=== PATIENT | male | born 1975 | race Caucasian/White ===

== ENCOUNTER 2017-03-24 23:22 | Inpatient (IN) | payer OTHER ==
[~2017-03-24] VITALS: Ht 172.7 cm; Wt 84.1 kg
--- NOTE | 2017-03-24 23:40 | NUR ---
PATIENT BROUGHT IN BY SISITER FOR C/O ETOH, PT IS ALERT,ABLE TO ANSWER QUESTIONS, ABLE TO MAKE NEEDS KNOWN, NO RESP DISTRESS NOTED OR REPORTED UPON ASSESSMENT... MD AT BEDSIDE...
[2017-03-25] MEDS ORDERED: ONDANSETRON IV *ER 4 MG/2 ML VIAL IV ONE
[2017-03-25] MEDS ORDERED: LORAZEPAM 2 MG/1 ML VIAL IV ONE
[2017-03-25] MEDS ORDERED: ONDANSETRON 4 MG/2 ML VIAL ONE (00:07)
[2017-03-25] MEDS ORDERED: LORAZEPAM 2 MG/1 ML VIAL ONE (00:07)
[2017-03-25 00:13] LABS: BASOPHILS # (AUTO) 0.1 K/uL (0.0-8.0); BASOPHILS % (AUTO) 1.2 % (0.0-2.0); EOSINOPHILS # (AUTO) 0.2 K/uL (0.0-0.7); EOSINOPHILS % (AUTO) 3.2 % (0.0-7.0); HEMATOCRIT 51.8 % (40-50); HEMOGLOBIN 17.7 G/DL (14.0-18.0); LYMPHOCYTES # (AUTO) 2.9 K/UL (0.8-4.8); LYMPHOCYTES % (AUTO) 42.9 % (20.5-51.5); MEAN CORPUSCULAR HEMOGLOBIN 30.9 UUG (27.0-31.0); MEAN CORPUSCULAR HGB CONC 34 g/dL (32.0-37.0); MEAN CORPUSCULAR VOLUME 90.2 FL (82.0-92.0); MONOCYTES # (AUTO) 0.8 K/UL (0.1-1.30); MONOCYTES % (AUTO) 11.2 % (0.0-11.0); NEUTROPHILS # (AUTO) 2.8 K/UL (1.8-8.9); NEUTROPHILS % (AUTO) 41.5 % (38.5-71.5); PLATELET COUNT (AUTO) 187 K/UL (150-450); RED BLOOD CELL COUNT(AUTO) 5.74 MIL/UL (4.7-6.1); WHITE BLOOD COUNT (AUTO) 6.8 K/UL (4.0-11.2)
[2017-03-25 00:15] LABS: CARBON DIOXIDE 27 mmol/L (21-32); CHLORIDE 101 mmol/L (98-107); CREATININE 0.9 mg/dL (0.6-1.3); GLUCOSE 120 mg/dL (74-106); POTASSIUM 3.8 mmol/L (3.5-5.1); UREA NITROGEN, BLOOD 8 mg/dL (7-18)
[2017-03-25] MEDS ORDERED: IV NORMAL SALINE 1000 ML BAG IV ONE ×2 (00:30)
[2017-03-25 00:31] LABS: *BILIRUBIN,URIN NEGATIVE (NEGATIVE); *BLOOD, URINE 2+ (NEGATIVE); *CLARITY,URINE CLEAR (CLEAR); *COLOR,URINE YELLOW (YELLOW); *KETONES,URINE NEGATIVE (NEGATIVE); *PROTEIN,URINE 2+ (NEGATIVE); *UROBILINOGEN,URINE 0.2 E.U./dl (NORMAL); LEUKOCYTE ESTERASE ,URINE NEGATIVE (NEGATIVE); NITRITE, URINE NEGATIVE (NEGATIVE); PH,URINE 7.5 (5.0-8.0); UGLUCOSE NEGATIVE (NEGATIVE)
[2017-03-25 00:36] LABS: *AMPHETAMINE, URINE NEGATIVE (NEGATIVE); *BARBITURATE, URINE NEGATIVE (NEGATIVE); *CANNABINOID, URINE NEGATIVE (NEGATIVE); *COCCAINE, URINE NEGATIVE (NEGATIVE); *OPIATE, URINE NEGATIVE (NEGATIVE); *PHENCYCLIDINE SCREEN,URINE NEGATIVE (NEGATIVE)
[2017-03-25 00:36] LABS: ALANINE AMINOTRANSFERASE 104 U/L (16-63); ALKALINE PHOSPHATASE 63 U/L (50-136); ASPARTATE AMINOTRANSFERASE 209 U/L (15-37); BILIRUBIN,DIRECT 0.1 mg/dL (0.0-0.2); BILIRUBIN,TOTAL 0.7 mg/dL (0.2-1.0); TOTAL PROTEIN, SERUM 8.2 g/dL (6.4-8.2)
[2017-03-25 00:37] LABS: ACETAMINOPHEN < 2.0 ug/mL (10-30)
[2017-03-25 00:39] LABS: ETHANOL 428 MG/DL (0-0)
[2017-03-25 00:43] LABS: BACTERIA,URINE MODERATE /HPF (NONE SEEN); RBC,URINE 20-50 /HPF (0-3); SQUAMOUS EPITHELIAL CELL,UR FEW /HPF (NONE SEEN); URINE AMORPHOUS URATE FEW /HPF
[2017-03-25] MEDS ORDERED: LACTULOSE 20 G/30 ML LIQUID UDC PO ONE (01:00)
[2017-03-25] MEDS ORDERED: AMPH15TA2 PO (01:16)
[2017-03-25] MEDS ORDERED: GABA-534 PO (01:16)
[2017-03-25] MEDS ORDERED: GABA600T2 PO (01:16)
[2017-03-25] MEDS ORDERED: FAMO-132 PO (01:16)
[2017-03-25] MEDS ORDERED: ATEN25TA PO (01:16)
[2017-03-25] MEDS ORDERED: LACTULOSE 20 G/30 ML LIQUID UDC ONE (01:50)
[2017-03-25] MEDS ORDERED: IV D5 1/2 NS 1000 ML 1,000 ML IV PRN (02:17)
--- NOTE | 2017-03-25 02:20 | NUR ---
ADMIT NEW PATIENT TO ROOM 217, PATIENT AWAKE, ALERT,IN NO ACUTE DISTRESS,ABLE TO ANSWER SOME QUESTIONS,NSR ON TELE MONITOR,KEEP NPO ORDER,PATIENT WAS EXPLAINED AND VERBALIZED UNDERSTANDING, FALL PRECAUTIONS, BEDSIDE COMMODE PROVIDED, PATIENT RECEIVED LACTULOSE FROM ER.
[2017-03-25] MEDS ORDERED: ONDANSETRON 4 MG/2 ML VIAL IV PRN (02:30)
[2017-03-25] MEDS ORDERED: ACETAMINOPHEN 325 MG TABLET PO PRN (02:30)
[2017-03-25] MEDS ORDERED: Z GUARD REMEDY PASTE 57 GM TUBE TOP PRN (02:30)
[2017-03-25] MEDS ORDERED: HYDROCODONE/APAP 5-325MG TABLET PO PRN (02:30)
[2017-03-25] MEDS ORDERED: ZOLPIDEM 5 MG TABLET PO PRN (02:30)
[2017-03-25] MEDS ORDERED: LACTULOSE 20 G/30 ML LIQUID UDC PO PRN (02:30)
[2017-03-25] MEDS ORDERED: MAGNESIUM HYDROXIDE 30 ML LIQUID UDC PO PRN (02:30)
[2017-03-25] MEDS ORDERED: MVI ADULT 10 ML VIAL=1 AMP 10 ML, THIAMINE HCL INJ 100 MG, FOLIC ACID 1 MG, MAGNESIUM S... IV SCH ×5 (02:30)
[2017-03-25 02:44] VITALS: BP 119/79
--- NOTE | 2017-03-25 03:04 | NUR ---
Pt. admitted to TELE , under care of Dr. BEVERLY SOLO, Belongs List completed, pt is awake, alert, no resp distress noted or reported upon transfer assessment...
[2017-03-25 03:06] LABS: AMYLASE 51 U/L (25-115); LIPASE 220 U/L (73-393)
[2017-03-25 04:00] VITALS: BP 121/85
[2017-03-25] MEDS: PANTOPRAZOLE SODIUM 40 MG TABLET.DR PO SCH (07:00)
[2017-03-25] MEDS: LACTULOSE 20 G/30 ML LIQUID UDC PO SCH ×2 (10:37→11:15)
[2017-03-25] MEDS ORDERED: MVI ADULT IV PRN (11:00)
[2017-03-25] MEDS ORDERED: D5 IV PRN (11:00)
[2017-03-25] MEDS ORDERED: THIAMINE HCL INJ 100 MG in IV DEXTROSE 5% 50 ML IV SCH ×2 (11:00→12:00)
[2017-03-25] MEDS ORDERED: 1/2 NS IV PRN (11:00)
[2017-03-25] MEDS ORDERED: FOLIC ACID 1 MG in IV DEXTROSE 5% 50 ML IV SCH (11:00)
[2017-03-25 11:30] VITALS: BP 114/79
--- NOTE | 2017-03-25 11:41 | NUR ---
PT IS SHACKING, PT IS ASKING FOR ATIVAN. PER DR. LUCAS GIVE ATIVAN 2MG NOW, THEN 2MG Q4H PRN
[2017-03-25] MEDS: LORAZEPAM 2 MG/1 ML VIAL IV PRN ×3 (12:05→21:34)
[2017-03-25] MEDS ORDERED: MAGNESIUM SULFATE/D5W 100 ML IV SCH (13:00)
[2017-03-25] MEDS: MAGNESIUM SULFATE/D5W 100 ML IV SCH (13:21)
--- NOTE | 2017-03-25 14:25 | NUR ---
PT STILL FEELS NAUSEA, OK TO CHANGE ZOFRAN TO Q4H 4MG PRN PER DR. LUCAS
[2017-03-25] MEDS: ONDANSETRON 4 MG/2 ML VIAL IV PRN ×2 (15:01→19:57)
--- NOTE | 2017-03-25 15:14 | NUR ---
OK TO CHANGE FROM NPO TO FULL LIQUIDS PER DR LUCAS
[2017-03-25 15:43] VITALS: BP 129/79
--- NOTE | 2017-03-25 19:28 | NUR ---
PT IS LAYING IN BED COMFORTABLY. NO S/S OF RESPIRATORY DISTRESS NOTED. NO PAIN NOTED. ALL SAFETY NEEDS ARE MET. IV INTACT/PATENT.
[2017-03-25 20:00] VITALS: BP 142/97
--- NOTE | 2017-03-25 20:00 | NUR ---
PATIENT STILL FEELING WEAK AND NAUSEA,ZOFRAN 4 MG IV ADMIN FOR NAUSEA,SLIGHTLY RESTLESS NOTED.
--- NOTE | 2017-03-25 21:35 | NUR ---
PATIENT SHAKING,ATIVAN 2 MG IV ADMIN,NSR ON MONITOR,CONTINUE CLOSELY MONITOR.
[2017-03-26] VITALS: BP 130/87
--- NOTE | 2017-03-26 00:05 | NUR ---
PATIENT SLEPT INTERMITTENTLY,NO ACUTE DISTRESS NOTED.
[2017-03-26] MEDS: ONDANSETRON 4 MG/2 ML VIAL IV PRN ×3 (02:23→12:02)
[2017-03-26] MEDS: LORAZEPAM 2 MG/1 ML VIAL IV PRN ×3 (02:24→12:02)
[2017-03-26 04:00] VITALS: BP 126/75
[2017-03-26] MEDS: PANTOPRAZOLE SODIUM 40 MG TABLET.DR PO SCH (06:13)
[2017-03-26 06:57] LABS: BASOPHILS % (AUTO) 0.9 % (0.0-2.0); EOSINOPHILS % (AUTO) 7.1 % (0.0-7.0); MEAN CORPUSCULAR HEMOGLOBIN 30.8 UUG (27.0-31.0); MEAN CORPUSCULAR HGB CONC 34 g/dL (32.0-37.0); MEAN CORPUSCULAR VOLUME 91.3 FL (82.0-92.0); MONOCYTES % (AUTO) 7.1 % (0.0-11.0); NEUTROPHILS # (AUTO) 4.8 K/UL (1.8-8.9); NEUTROPHILS % (AUTO) 66.9 % (38.5-71.5); WHITE BLOOD COUNT (AUTO) 7.2 K/UL (4.0-11.2)
[2017-03-26 06:58] LABS: BASOPHILS # (AUTO) 0.1 K/uL (0.0-8.0); EOSINOPHILS # (AUTO) 0.5 K/uL (0.0-0.7); LYMPHOCYTES # (AUTO) 1.3 K/UL (0.8-4.8); MONOCYTES # (AUTO) 0.5 K/UL (0.1-1.30)
[2017-03-26 07:09] LABS: BILIRUBIN,TOTAL 1.5 mg/dL (0.2-1.0); MAGNESIUM 1.8 mg/dL (1.8-2.4); PHOSPHOROUS 2.8 mg/dL (2.5-4.9); POTASSIUM 3.2 mmol/L (3.5-5.1); TOTAL PROTEIN, SERUM 7.3 g/dL (6.4-8.2)
[2017-03-26 07:13] LABS: THYROID STIMULATING HORMONE 3.699 mIU/mL (0.358-3.740)
[2017-03-26 07:14] LABS: HEMATOCRIT 45.1 % (40-50); HEMOGLOBIN 15.2 G/DL (14.0-18.0); RED BLOOD CELL COUNT(AUTO) 4.95 MIL/UL (4.7-6.1)
[2017-03-26 07:15] LABS: PLATELET COUNT (AUTO) 130 K/UL (150-450)
--- NOTE | 2017-03-26 07:40 | NUR ---
famotidine q12h po [address] huang
[2017-03-26] MEDS: LACTULOSE 20 G/30 ML LIQUID UDC PO SCH (08:03)
[2017-03-26] MEDS ORDERED: MAG HYDROX/AL HYDROX/SIMETH 30 ML LIQUID UDC PO PRN (08:15)
[2017-03-26] MEDS ORDERED: FAMOTIDINE 20 MG TABLET PO SCH (09:00)
[2017-03-26] MEDS ORDERED: THIAMINE HCL 100 MG TABLET PO SCH (09:24)
[2017-03-26] MEDS ORDERED: MULTIVIT, IRON, MIN NO. 8, FA TABLET PO SCH (09:24)
[2017-03-26] MEDS ORDERED: FOLIC ACID 1 MG TABLET PO SCH (09:24)
[2017-03-26 11:15] VITALS: BP 131/85
[2017-03-26] MEDS ORDERED: CHLO25CA22 PO (11:23)
[2017-03-26] MEDS ORDERED: LORA1TAB PO (11:23)
[2017-03-26] MEDS ORDERED: POTASSIUM CHLORIDE 20 MEQ TAB.PRT.SR PO ONE (12:30)
[2017-03-26] MEDS: MAGNESIUM SULFATE/D5W 100 ML IV SCH (13:10)
--- NOTE | 2017-03-26 13:53 | NUR ---
discharge note: PT IS READY TO BE D/C. NO PAIN/ANXIETY NOTED. NO NAUSEA NOTED. NO S/S OF RESPIRATORY DISTRESS NOTED. PT IS WHEELCHAIRED AND LEFT VIA PRIVATE CAR WITH HIS SISTER. ROMULO SMITH TALKED TO THE PT. IV/WRISTBAND REMOVED. PT REFUSED EDUCATION WITH PHARMACIST, STATES "I KNOW THESE MEDICATIONS". PRESCRIPTION GIVEN TO THE PT. NO S/S BLEEDING NOTED.
== END 2017-03-26 14:06 | disposition home or self-care (01) | DRG 279 ==
LOC: ER 23:25 → TELE 03-25 02:00 → MED 03-26 13:42
PROVIDERS: ADMIT Internal Medicine; ATTEND Family Medicine
DX: K72.90 Hepatic failure, unspecified without coma (principal); I21.4 Non-ST elevation (NSTEMI) myocardial infarction; G92 Toxic encephalopathy; K85.90 Acute pancreatitis without necrosis or infection, unspecified; E72.20 Disorder of urea cycle metabolism, unspecified; K86.0 Alcohol-induced chronic pancreatitis; M62.82 Rhabdomyolysis; F10.239 Alcohol dependence with withdrawal, unspecified; Y90.8 Blood alcohol level of 240 mg/100 ml or more; K70.10 Alcoholic hepatitis without ascites; Z82.49 Family history of ischemic heart disease and other diseases of the circulatory system; F41.0 Panic disorder [episodic paroxysmal anxiety]; F32.9 Major depressive disorder, single episode, unspecified; Z83.3 Family history of diabetes mellitus; I10 Essential (primary) hypertension; Z87.891 Personal history of nicotine dependence; F90.9 Attention-deficit hyperactivity disorder, unspecified type
CPT/HCPCS: 36415; 70030-TC; 71010; 76700; 80307; 83690; 83735; 84100; 84443; 85025; 85730; 87086; 93005; 93307; A4663; G0480; G0480-TC; J2060; J2405; J3411; J3475; J3490; J7030; J7060

== ENCOUNTER 2017-08-03 13:19 | Inpatient (IN) | payer OTHER ==
[~2017-08-03] VITALS: Ht 172.7 cm; Wt 75.7 kg
[~2017-08-03 13:19] MED LIST: AMPH15TA2 PO; ATEN25TA PO; CHLO25CA22 PO; FAMO-132 PO; GABA-534 PO; GABA600T2 PO; LORA1TAB PO
[2017-08-03] MEDS ORDERED: IV NORMAL SALINE 1000 ML BAG IV ONE ×2 (13:45→14:45)
[2017-08-03] MEDS ORDERED: LORAZEPAM 2 MG/1 ML VIAL IV ONE (13:45)
[2017-08-03 13:56] LABS: BASOPHILS # (AUTO) 0.1 K/uL (0.0-8.0); BASOPHILS % (AUTO) 1.6 % (0.0-2.0); EOSINOPHILS # (AUTO) 0.3 K/uL (0.0-0.7); EOSINOPHILS % (AUTO) 3.7 % (0.0-7.0); HEMATOCRIT 50.7 % (40-50); HEMOGLOBIN 16.6 G/DL (14.0-18.0); LYMPHOCYTES % (AUTO) 42.6 % (20.5-51.5); MEAN CORPUSCULAR HEMOGLOBIN 28.5 UUG (27.0-31.0); MEAN CORPUSCULAR HGB CONC 33 g/dL (32.0-37.0); MEAN CORPUSCULAR VOLUME 87.2 FL (82.0-92.0); MONOCYTES # (AUTO) 0.5 K/UL (0.1-1.30); MONOCYTES % (AUTO) 7.4 % (0.0-11.0); NEUTROPHILS # (AUTO) 3.2 K/UL (1.8-8.9); NEUTROPHILS % (AUTO) 44.7 % (38.5-71.5); PLATELET COUNT (AUTO) 309 K/UL (150-450); RED BLOOD CELL COUNT(AUTO) 5.82 MIL/UL (4.7-6.1); WHITE BLOOD COUNT (AUTO) 7.1 K/UL (4.0-11.2)
[2017-08-03] MEDS ORDERED: LORAZEPAM 2 MG/1 ML VIAL ONE (14:07)
[2017-08-03 14:10] LABS: CARBON DIOXIDE 27 mmol/L (21-32); CHLORIDE 105 mmol/L (98-107); CREATININE 0.8 mg/dL (0.6-1.3); GLUCOSE 117 mg/dL (74-106); POTASSIUM 3.9 mmol/L (3.5-5.1); UREA NITROGEN, BLOOD 7 mg/dL (7-18)
[2017-08-03 14:15] LABS: ALANINE AMINOTRANSFERASE 58 U/L (16-63); ALKALINE PHOSPHATASE 30 U/L (50-136); ASPARTATE AMINOTRANSFERASE 42 U/L (15-37); BILIRUBIN,DIRECT 0.1 mg/dL (0.0-0.2); BILIRUBIN,TOTAL 0.8 mg/dL (0.2-1.0); TOTAL PROTEIN, SERUM 7.5 g/dL (6.4-8.2)
[2017-08-03 14:16] LABS: ACETAMINOPHEN < 2.0 ug/mL (10-30)
[2017-08-03 14:45] LABS: ETHANOL 302 MG/DL (0-0)
[2017-08-03 15:44] LABS: *BILIRUBIN,URIN NEGATIVE (NEGATIVE); *BLOOD, URINE Trace-intact (NEGATIVE); *CLARITY,URINE CLEAR (CLEAR); *COLOR,URINE YELLOW (YELLOW); *KETONES,URINE NEGATIVE (NEGATIVE); *PROTEIN,URINE NEGATIVE (NEGATIVE); *UROBILINOGEN,URINE 0.2 E.U./dl (NORMAL); LEUKOCYTE ESTERASE ,URINE NEGATIVE (NEGATIVE); NITRITE, URINE NEGATIVE (NEGATIVE); UGLUCOSE NEGATIVE (NEGATIVE)
[2017-08-03 15:52] LABS: BACTERIA,URINE NONE SEEN /HPF (NONE SEEN); SQUAMOUS EPITHELIAL CELL,UR FEW /HPF (NONE SEEN); WBC,URINE 0-3 /HPF (0-3)
[2017-08-03 16:11] LABS: *AMPHETAMINE, URINE NEGATIVE (NEGATIVE); *BARBITURATE, URINE NEGATIVE (NEGATIVE); *CANNABINOID, URINE NEGATIVE (NEGATIVE); *COCCAINE, URINE NEGATIVE (NEGATIVE); *OPIATE, URINE NEGATIVE (NEGATIVE); *PHENCYCLIDINE SCREEN,URINE NEGATIVE (NEGATIVE)
[2017-08-03 16:34] VITALS: BP 113/75
[2017-08-03] MEDS ORDERED: ACETAMINOPHEN 325 MG TABLET PO PRN (20:00)
[2017-08-03] MEDS ORDERED: MAG HYDROX/AL HYDROX/SIMETH 30 ML LIQUID UDC PO PRN (20:00)
[2017-08-03] MEDS ORDERED: HYDROMORPHONE 1 MG/1 ML DISP.SYRIN IV PRN (20:15)
[2017-08-03] MEDS: ONDANSETRON 4 MG/2 ML VIAL IV PRN (20:32)
[2017-08-03] MEDS: LORAZEPAM 2 MG/1 ML VIAL IV PRN (20:33)
[2017-08-03 20:37] VITALS: BP 113/62
[2017-08-03] MEDS ORDERED: Medication Not On Formulary EA (Gabapentin 600 MG) PO SCH (21:00)
[2017-08-03] MEDS: LACTULOSE 20 G/30 ML LIQUID UDC PO SCH (21:00)
[2017-08-03] MEDS: GABAPENTIN 300 MG CAPSULE PO SCH (22:13)
[2017-08-03] MEDS: HYDROMORPHONE 2 MG/1 ML DISP.SYRIN IV PRN (22:20)
[2017-08-03] MEDS ORDERED: IV 1/2NS 1000 ML 1,000 ML IV SCH (23:30)
[2017-08-04] VITALS: BP 110/62
[2017-08-04] MEDS: LORAZEPAM 2 MG/1 ML VIAL IV PRN ×4 (03:02→23:35)
[2017-08-04 04:00] VITALS: BP 115/72
[2017-08-04] MEDS: PANTOPRAZOLE SODIUM 40 MG TABLET.DR PO SCH (06:28)
[2017-08-04 06:50] LABS: BASOPHILS # (AUTO) 0.1 K/uL (0.0-8.0); BASOPHILS % (AUTO) 1.4 % (0.0-2.0); EOSINOPHILS # (AUTO) 0.4 K/uL (0.0-0.7); EOSINOPHILS % (AUTO) 4.8 % (0.0-7.0); HEMATOCRIT 44.9 % (40-50); HEMOGLOBIN 14.6 G/DL (14.0-18.0); LYMPHOCYTES % (AUTO) 23.1 % (20.5-51.5); MEAN CORPUSCULAR HEMOGLOBIN 28.6 UUG (27.0-31.0); MEAN CORPUSCULAR HGB CONC 33 g/dL (32.0-37.0); MEAN CORPUSCULAR VOLUME 88.1 FL (82.0-92.0); MONOCYTES # (AUTO) 0.8 K/UL (0.1-1.30); MONOCYTES % (AUTO) 8.8 % (0.0-11.0); NEUTROPHILS # (AUTO) 5.3 K/UL (1.8-8.9); NEUTROPHILS % (AUTO) 61.9 % (38.5-71.5); PLATELET COUNT (AUTO) 222 K/UL (150-450); WHITE BLOOD COUNT (AUTO) 8.6 K/UL (4.0-11.2)
[2017-08-04] MEDS ORDERED: IV 1/2NS 1000 ML 1,000 ML IV PRN (06:58)
[2017-08-04 07:14] LABS: BILIRUBIN,TOTAL 0.4 mg/dL (0.2-1.0); PHOSPHOROUS 4.1 mg/dL (2.5-4.9); POTASSIUM 3.7 mmol/L (3.5-5.1); TOTAL PROTEIN, SERUM 6.5 g/dL (6.4-8.2)
[2017-08-04 07:33] LABS: MAGNESIUM 1.2 mg/dL (1.8-2.4)
[2017-08-04] MEDS: ONDANSETRON 4 MG/2 ML VIAL IV PRN ×3 (08:23→22:05)
[2017-08-04] MEDS: HYDROMORPHONE 2 MG/1 ML DISP.SYRIN IV PRN (08:24)
[2017-08-04] MEDS: FAMOTIDINE 20 MG TABLET PO SCH ×2 (08:28→17:34)
[2017-08-04] MEDS: THIAMINE HCL 100 MG TABLET PO SCH (08:28)
[2017-08-04] MEDS: LACTULOSE 20 G/30 ML LIQUID UDC PO SCH ×3 (08:28→17:35)
[2017-08-04] MEDS: MULTIVITAMINS,THERAPEUTIC TABLET PO SCH (08:29)
[2017-08-04] MEDS: ATENOLOL 25 MG TABLET PO SCH ×2 (08:29→17:34)
[2017-08-04] MEDS: FOLIC ACID 1 MG TABLET PO SCH (08:29)
[2017-08-04] MEDS: GABAPENTIN 300 MG CAPSULE PO SCH ×2 (09:09→20:22)
[2017-08-04 11:39] VITALS: BP 138/75
[2017-08-04] MEDS: MAGNESIUM SULFATE/D5W 100 ML IV SCH ×4 (12:26→16:27)
[2017-08-04 15:43] VITALS: BP 134/86
[2017-08-04 20:00] VITALS: BP 102/63
[2017-08-04] MEDS: HYDROCODONE/APAP 5-325MG TABLET PO PRN (20:22)
[2017-08-05] MEDS: HYDROCODONE/APAP 5-325MG TABLET PO PRN (02:02)
[2017-08-05] MEDS: PANTOPRAZOLE SODIUM 40 MG TABLET.DR PO SCH (06:21)
[2017-08-05 06:48] LABS: CREATININE 0.9 mg/dL (0.6-1.3); POTASSIUM 4.2 mmol/L (3.5-5.1)
[2017-08-05 07:10] VITALS: BP 135/91
[2017-08-05 07:25] LABS: BASOPHILS # (AUTO) 0.1 K/uL (0.0-8.0); EOSINOPHILS # (AUTO) 0.5 K/uL (0.0-0.7); HEMOGLOBIN 15.1 g/dL (12.5-16.3); MONOCYTES # (AUTO) 0.5 K/uL (2.0-10.0); NEUTROPHILS # (AUTO) 3.3 K/uL (1.8-8.9); NEUTROPHILS % (AUTO) 54.6 % (38.5-71.5)
[2017-08-05 07:42] LABS: BASOPHILS % (AUTO) 2.1 % (0.0-2.0); EOSINOPHILS % (AUTO) 8.7 % (0.0-7.0); HEMATOCRIT 44.9 % (36.7-47.1); LYMPHOCYTES # (AUTO) 1.6 K/uL (20.0-40.0); LYMPHOCYTES % (AUTO) 26.2 % (20.5-51.5); MEAN CORPUSCULAR HEMOGLOBIN 29.9 uug (23.8-33.4); MEAN CORPUSCULAR HGB CONC 34 g/dL (32.5-36.3); MEAN CORPUSCULAR VOLUME 88.7 fL (73.0-96.2); MONOCYTES % (AUTO) 8.4 % (0.0-11.0); RED BLOOD CELL COUNT(AUTO) 5.06 MIL/uL (4.06-5.63)
[2017-08-05 07:45] LABS: PLATELET COUNT (AUTO) 162 K/uL (152-348); WHITE BLOOD COUNT (AUTO) 6.1 K/uL (3.6-10.2)
[2017-08-05] MEDS: GABAPENTIN 300 MG CAPSULE PO SCH (08:35)
[2017-08-05] MEDS: FAMOTIDINE 20 MG TABLET PO SCH (08:35)
[2017-08-05] MEDS: MULTIVITAMINS,THERAPEUTIC TABLET PO SCH (08:36)
[2017-08-05] MEDS: THIAMINE HCL 100 MG TABLET PO SCH (08:36)
[2017-08-05] MEDS: FOLIC ACID 1 MG TABLET PO SCH (08:36)
[2017-08-05 08:39] VITALS: BP 152/99
[2017-08-05] MEDS: ATENOLOL 25 MG TABLET PO SCH (08:39)
[2017-08-05] MEDS: LORAZEPAM 2 MG/1 ML VIAL IV PRN (08:48)
[2017-08-05] MEDS: LACTULOSE 20 G/30 ML LIQUID UDC PO SCH (09:00)
== END 2017-08-05 10:30 | disposition home or self-care (01) | DRG 280 ==
LOC: ER 13:19 → TELE 15:46 → MED 08-04 13:25
PROVIDERS: ADMIT Internal Medicine; ATTEND Internal Medicine
DX: K70.40 Alcoholic hepatic failure without coma (principal); E87.2 Acidosis; E83.42 Hypomagnesemia; F10.239 Alcohol dependence with withdrawal, unspecified; I10 Essential (primary) hypertension; F41.8 Other specified anxiety disorders; F90.9 Attention-deficit hyperactivity disorder, unspecified type; K80.20 Calculus of gallbladder without cholecystitis without obstruction; F10.229 Alcohol dependence with intoxication, unspecified; T51.0X1A Toxic effect of ethanol, accidental (unintentional), initial encounter; Y90.8 Blood alcohol level of 240 mg/100 ml or more; R74.0 Nonspecific elevation of levels of transaminase and lactic acid dehydrogenase [LDH]; K59.00 Constipation, unspecified
CPT/HCPCS: 36415; 70030-TC; 71010; 80307; 83550; 83605; 83690; 83735; 84100; 85025; 85730; 87040; 87086; 93005; A4663; G0480; G0480-TC; J1170; J2060; J2405; J3475; J3490; J7030

== ENCOUNTER 2019-12-31 15:24 | Inpatient (IN) | payer BC ==
[~2019-12-31] VITALS: Ht 172.7 cm; Wt 81.6 kg
--- NOTE | 2019-12-31 15:25 | NUR ---
Patient arrived in unit via stretcher from [facility]. Admitting dx is alcohol withdrawal. Report received from Alisha RG RN in [place]. Patient was assisted to bed by 2 ambulance personnel, gait very unsteady and weak. Alert, oriented x4, able to answer questions and follow commands.On RA with no complaints of SOB at this time. Right hand IV 22g intact and patent. Restless and tremors noted and complained of nausea. Skin intact. Left ankle brace due to fall per patient, able to move extremities with no problem. Oriented to unit and room. Call light and phone within reach. Bed locked in lowest position with siderails 2x up. No other complaints except for tremors and nausea. Dr. Peace made aware of admission.
[2019-12-31 15:38] VITALS: BP 131/95
--- NOTE | 2019-12-31 16:00 | NUR ---
Patient was swabbed for covid-19 in [facility]. Results still pending. Talked to Mell Kolb CM, will fax results. #[phone]
--- NOTE | 2019-12-31 16:05 | NUR ---
patient was put on droplet isolation due to no s/s of [place]
[2019-12-31] MEDS ORDERED: ONDANSETRON 4 MG/2 ML VIAL IV PRN (18:00)
[2019-12-31] MEDS ORDERED: MORPHINE SULFATE 2 MG/1 ML DISP.SYRIN IV PRN (18:00)
[2019-12-31] MEDS: LORAZEPAM 2 MG/1 ML VIAL IV PRN ×2 (18:20→23:05)
--- NOTE | 2019-12-31 18:20 | NUR ---
Gave Ativan PRN and Zofran PRN as ordered for tremors and nausea.
--- NOTE | 2019-12-31 19:30 | NUR ---
Received patient awake and alert in bed, no signs of acute distress noted. Says he is feeling shaky, received Ativan by morning nurse. A/Ox4. Heplock on the right hand is intact. On droplet precaution for rule out COVID19. Safety measures initiated. Bed is low and locked, call light within reach. Will continue to monitor.
[2019-12-31] MEDS: GABAPENTIN 300 MG CAPSULE PO SCH (20:47)
[2019-12-31 20:48] VITALS: BP 144/100
[2019-12-31] MEDS: IV 1/2NS 1000 ML 1,000 ML IV PRN (20:48)
[2019-12-31] MEDS ORDERED: Medication Not On Formulary EA (Gabapentin 600 MG) PO SCH (21:00)
[2020-01-01 01:05] VITALS: BP 139/108
[2020-01-01 05:44] VITALS: BP 140/96
--- NOTE | 2020-01-01 06:09 | NUR ---
Patient slept well after PRN Ativan was given. HR was tachy beginning of the shift, as high as 130, then most of the night remained in the 90s. Safety measures given. Will endorse to next shift.
[2020-01-01 06:31] LABS: BASOPHILS # (AUTO) 0.1 K/uL (0.0-8.0); BASOPHILS % (AUTO) 1.2 % (0.0-2.0); EOSINOPHILS # (AUTO) 0.1 K/uL (0.0-0.7); EOSINOPHILS % (AUTO) 1.7 % (0.0-7.0); HEMATOCRIT 44.5 % (36.7-47.1); LYMPHOCYTES # (AUTO) 1.1 K/uL (20.0-40.0); LYMPHOCYTES % (AUTO) 26.6 % (20.5-51.5); MEAN CORPUSCULAR HEMOGLOBIN 33.2 uug (23.8-33.4); MEAN CORPUSCULAR HGB CONC 34 g/dL (32.5-36.3); MEAN CORPUSCULAR VOLUME 98.3 fL (73.0-96.2); MONOCYTES # (AUTO) 0.4 K/uL (2.0-10.0); MONOCYTES % (AUTO) 9.7 % (0.0-11.0); NEUTROPHILS # (AUTO) 2.6 K/uL (1.8-8.9); NEUTROPHILS % (AUTO) 60.8 % (38.5-71.5); PLATELET COUNT (AUTO) 117 K/uL (152-348); RED BLOOD CELL COUNT(AUTO) 4.53 MIL/uL (4.06-5.63); WHITE BLOOD COUNT (AUTO) 4.3 K/uL (3.6-10.2)
[2020-01-01 06:42] LABS: BILIRUBIN,TOTAL 1.7 mg/dL (0.2-1.0); MAGNESIUM 1.4 mg/dL (1.8-2.4); PHOSPHOROUS 2.5 mg/dL (2.5-4.9); POTASSIUM 3.2 mmol/L (3.5-5.1); TOTAL PROTEIN, SERUM 7.1 g/dL (6.4-8.2)
[2020-01-01 07:20] LABS: THYROID STIMULATING HORMONE 5.79 mIU/mL (0.358-3.740)
--- NOTE | 2020-01-01 08:00 | NUR ---
Pt is alert and oriented x 4. Pt on precautionary droplet precaution. Awaiting covid 19 result from [facility]. Pt is in no acute distress. Call light is within reach. Plan of care implemented for etoh withdrawal. No shaking noted. PT anxious to be managed with ativan. No sob noted.
[2020-01-01] MEDS: FAMOTIDINE 20 MG TABLET PO SCH ×2 (08:25→17:53)
[2020-01-01] MEDS: GABAPENTIN 300 MG CAPSULE PO SCH ×2 (08:25→22:10)
[2020-01-01] MEDS: FOLIC ACID 1 MG TABLET PO SCH (08:25)
[2020-01-01] MEDS: MULTIVITAMINS,THERAPEUTIC TABLET PO SCH (08:25)
[2020-01-01] MEDS: ACETAMINOPHEN 325 MG TABLET PO PRN ×2 (08:25→22:10)
[2020-01-01] MEDS: THIAMINE HCL 100 MG TABLET PO SCH (08:25)
[2020-01-01] MEDS: LORAZEPAM 2 MG/1 ML VIAL IV PRN ×4 (08:26→22:10)
[2020-01-01] MEDS: ATENOLOL 25 MG TABLET PO SCH ×2 (08:39→17:53)
[2020-01-01] MEDS: IV 1/2NS 1000 ML 1,000 ML IV PRN (10:57)
[2020-01-01 12:00] VITALS: BP 137/92
[2020-01-01] MEDS ORDERED: POTASSIUM CHLORIDE 20 MEQ TAB.PRT.SR PO ONE (12:15)
[2020-01-01] MEDS: MAGNESIUM SULFATE/D5W 100 ML IV SCH ×3 (13:13→15:20)
[2020-01-01 16:00] VITALS: BP 146/98
--- NOTE | 2020-01-01 18:32 | NUR ---
Covid result negative from [facility]. Dr evans notified. Pt has been ancious throughout shift but managed with ativan. Pt states that ativan has been effective decreasing his anxiousness. Call light is within reach.
--- NOTE | 2020-01-01 19:30 | NUR ---
Received patient awake and alert. Patient shows no signs or symptoms of distress at this time. Patient is NSR to low Sinus Tach on the monitor. Vital signs are stable. Bed set to lowest position. Call light within reach. Will continue to monitor patient.
[2020-01-01 20:20] VITALS: BP 138/92
[2020-01-02 00:12] VITALS: BP 106/79
[2020-01-02] MEDS: LORAZEPAM 2 MG/1 ML VIAL IV PRN ×3 (04:15→09:30)
[2020-01-02] MEDS: IV 1/2NS 1000 ML 1,000 ML IV PRN ×2 (04:16→04:18)
[2020-01-02 04:24] VITALS: BP 134/84
[2020-01-02 05:57] LABS: BASOPHILS % (AUTO) 0.8 % (0.0-2.0); EOSINOPHILS # (AUTO) 0.2 K/uL (0.0-0.7); EOSINOPHILS % (AUTO) 4.5 % (0.0-7.0); HEMATOCRIT 44.7 % (36.7-47.1); HEMOGLOBIN 14.6 g/dL (12.5-16.3); LYMPHOCYTES # (AUTO) 1.3 K/uL (20.0-40.0); LYMPHOCYTES % (AUTO) 27.6 % (20.5-51.5); MEAN CORPUSCULAR HEMOGLOBIN 32.8 uug (23.8-33.4); MEAN CORPUSCULAR HGB CONC 33 g/dL (32.5-36.3); MEAN CORPUSCULAR VOLUME 100.2 fL (73.0-96.2); MONOCYTES # (AUTO) 0.4 K/uL (2.0-10.0); MONOCYTES % (AUTO) 8.1 % (0.0-11.0); NEUTROPHILS # (AUTO) 2.8 K/uL (1.8-8.9); PLATELET COUNT (AUTO) 101 K/uL (152-348); RED BLOOD CELL COUNT(AUTO) 4.46 MIL/uL (4.06-5.63); WHITE BLOOD COUNT (AUTO) 4.8 K/uL (3.6-10.2)
[2020-01-02 06:41] LABS: BILIRUBIN,TOTAL 1.2 mg/dL (0.2-1.0); CREATININE 0.8 mg/dL (0.6-1.3); MAGNESIUM 2.2 mg/dL (1.8-2.4); PHOSPHOROUS 2.8 mg/dL (2.5-4.9); POTASSIUM 3.5 mmol/L (3.5-5.1); TOTAL PROTEIN, SERUM 7.2 g/dL (6.4-8.2)
--- NOTE | 2020-01-02 06:59 | NUR ---
Patient shows no signs or symptoms of distress at this time. Patient resting comfortably in bed. Will endorse patient to day shift nurse in stable condition.
--- NOTE | 2020-01-02 08:00 | NUR ---
Pt states he feels better. Pts anxiety less from yesterday. No sob noted. Call light is within reach. Pt denies any c/o pain.
[2020-01-02] MEDS: THIAMINE HCL 100 MG TABLET PO SCH (09:06)
[2020-01-02] MEDS: MULTIVITAMINS,THERAPEUTIC TABLET PO SCH (09:06)
[2020-01-02] MEDS: FOLIC ACID 1 MG TABLET PO SCH (09:06)
[2020-01-02] MEDS: FAMOTIDINE 20 MG TABLET PO SCH ×2 (09:06→16:32)
[2020-01-02] MEDS: GABAPENTIN 300 MG CAPSULE PO SCH (09:07)
[2020-01-02] MEDS: ATENOLOL 25 MG TABLET PO SCH ×2 (09:07→16:32)
[2020-01-02 12:00] VITALS: BP 120/81
[2020-01-02 17:00] VITALS: BP 133/90
--- NOTE | 2020-01-02 18:20 | NUR ---
Discharge instruction given to patient. Pt verbalized understanding. DR evans did e prescription to pt's preferred pharmacy. Instruction given to patient to follow up with primary doctor. Pt ambulates with good balance. IV dc. No sob noted upon discharge.
== END 2020-01-02 17:55 | disposition home or self-care (01) | DRG 896 ==
LOC: TELE3 15:24
PROVIDERS: ADMIT Internal Medicine; ATTEND Internal Medicine
DX: F10.239 Alcohol dependence with withdrawal, unspecified (principal); G92 Toxic encephalopathy; F90.9 Attention-deficit hyperactivity disorder, unspecified type; E87.6 Hypokalemia; E83.42 Hypomagnesemia; I10 Essential (primary) hypertension; R74.0 Nonspecific elevation of levels of transaminase and lactic acid dehydrogenase [LDH]; R16.0 Hepatomegaly, not elsewhere classified; K80.20 Calculus of gallbladder without cholecystitis without obstruction; K70.9 Alcoholic liver disease, unspecified; Y90.9 Presence of alcohol in blood, level not specified; F32.9 Major depressive disorder, single episode, unspecified; F41.9 Anxiety disorder, unspecified
CPT/HCPCS: 36415; 70030-TC; 83550; 83690; 83735; 84100; 84443; 85025; G0378; J2060; J2405; J3475; J3490